=== PATIENT | male | born 1955 | race Caucasian/White ===

== ENCOUNTER → 2019-12-12 | Outpatient (REF) | payer MEDICARE ==
[~2019-12-12] MED LIST: AMLO10TA5 PO; ATOR1TAB21 PO; BACI1CAP PO; CEFD1CAP8; CEFP200T PO; CIPR500T3; LEVA750T7 PO; LOPR1TAB6 PO; METO1TAB87 PO; PANT40TA3 PO; PERCOCET PO; SENN-52 PO
[2019-12-12 17:01] LABS: APPEARANCE, URINE CLOUDY (CLEAR); BACTERIA, URINE AUTO 2+ (NEGATIVE); BILIRUBIN, URINE AUTO NEGATIVE (NEGATIVE); BLOOD, URINE BLOOD 3+ (NEGATIVE); COLOR, URINE YELLOW (YELLOW); GLUCOSE, URINE (UA) AUTO NEGATIVE (NEGATIVE); KETONE, URINE AUTO NEGATIVE (NEGATIVE); LEUKOCYTE ESTERASE, URINE AUTO 3+ (NEGATIVE); NITRITE, URINE AUTO NEGATIVE (NEGATIVE); PROTEIN, URINE AUTO 1+ mg/dL (NEGATIVE); RBC, URINE AUTO 43 /HPF (0-3); RENAL EPITHELIAL CELLS 2 /HPF; SPECIFIC GRAVITY URINE AUTO 1.003 (1.002-1.035); SQUAMOUS EPITHELIAL CELL UR AU 0 /HPF (0-6); UROBILINOGEN, URINE AUTO 0.2 mg/dL (0.0-2.0); WBC, URINE AUTO TNTC /HPF (0-3)
[2019-12-12 17:05] LABS: HEMATOCRIT 41.3 % (42.0-52.0); MEAN CORPUSCULAR HEMOGLOBIN 34.1 pg (27.0-33.0); MEAN CORPUSCULAR HGB CONC 33.9 g/dl (32.0-36.5); MEAN CORPUSCULAR VOLUME 100.5 fl (80.0-96.0); PLATELET COUNT, AUTOMATED 493 10^3/uL (150-450); RED BLOOD COUNT 4.11 10^6/uL (4.30-6.10); WHITE BLOOD COUNT 13.4 10^3/uL (4.0-10.0)
[2019-12-12 17:18] LABS: ALBUMIN 3.7 GM/DL (3.2-5.2); ALT/SGPT 13 U/L (12-78); BILIRUBIN,TOTAL 0.6 MG/DL (0.2-1.0); BLOOD UREA NITROGEN 8 MG/DL (7-18); CALCIUM LEVEL 9.9 MG/DL (8.8-10.2); CARBON DIOXIDE LEVEL 30 MEQ/L (21-32); CHLORIDE LEVEL 100 MEQ/L (98-107); CHOLESTEROL LEVEL 185 MG/DL (<200); CHOLESTEROL RISK RATIO 3.189 (<5); CREATININE FOR GFR 0.81 MG/DL (0.70-1.30); FREE T4 1.08 NG/DL (0.76-1.46); GLOMERULAR FILTRATION RATE > 60.0 (>49); GLUCOSE, FASTING 85 MG/DL (70-100); HDL CHOLESTEROL 58 MG/DL (>40); LDL CHOLESTEROL 109 MG/DL (<100); NON-HDL-C 127 MG/DL; POTASSIUM SERUM 4.3 MEQ/L (3.5-5.1); SODIUM LEVEL 135 MEQ/L (136-145); TOTAL PROTEIN 8.2 GM/DL (6.4-8.2); TRIGLYCERIDES LEVEL 90 MG/DL (<150)
== END ==
LOC: M SFHCADAM 11:51
PROVIDERS: ATTEND Physician Assistant
DX: R35.0 Frequency of micturition (principal); I10 Essential (primary) hypertension; E78.00 Pure hypercholesterolemia, unspecified; F17.210 Nicotine dependence, cigarettes, uncomplicated; R97.20 Elevated prostate specific antigen [PSA]
CPT/HCPCS: 80053; 80061; 81001; 84439; 84443; 85027; 87088; 87186; 90732; 99406; G0009; G0103; G0463

== ENCOUNTER → 2019-12-13 | Outpatient (REF) | payer MEDICARE ==
[2019-12-13 16:38] LABS: FOLATE 6.1 NG/ML
== END ==
LOC: M SFHCADAM 13:42
PROVIDERS: ATTEND Physician Assistant
DX: D75.89 Other specified diseases of blood and blood-forming organs (principal); Z86.19 Personal history of other infectious and parasitic diseases

== ENCOUNTER → 2019-12-22 | Outpatient (CLI) | payer MEDICARE, MEDICAID ==
[~2019-12-22] MED LIST changes: -AMLO10TA5 PO; -ATOR1TAB21 PO; -BACI1CAP PO; -CEFD1CAP8; -CEFP200T PO; -CIPR500T3; +ISOVUE-370 76% 100ML VIAL (Q9967) As Ordered ONE; -LEVA750T7 PO; -LOPR1TAB6 PO; -METO1TAB87 PO; -PANT40TA3 PO; -PERCOCET PO; -SENN-52 PO
--- NOTE | 2019-12-22 11:23 | REP ---
REASON: BPH. PRIORS: None. Contrast 100 mL Isovue 370. The lung bases are clear. There is minimal early cylindrical bronchiectasis. The precontrast enhanced portion of the exam shows hepatic and splenic densities to be within normal limits. There is no nephroureterolithiasis, hydronephrosis or hydroureter. There are no urinary bladder calcifications. There are bilateral pelvic phleboliths. There is mild corpora amylacea. There is bilateral renal stranding. There are no choleliths. Contrast enhanced portion of the examination shows incidental right-sided renal cysts. The kidneys are otherwise within normal limits. The liver is within normal limits. There are two incidental hepatic cysts in the left lobe. The gallbladder, spleen, pancreas, and adrenal glands are within normal limits. Multiple nonenlarged paraaortic lymph nodes are present. There is calcific atherosclerotic change seen in the abdominal aorta. There is no evidence of free fluid or free air. The bowel loops and their mesenteries are within normal limits. CT PELVIS: There is extensive sigmoid colon diverticulosis. There is no free fluid or free air. The urinary bladder wall appears to somewhat thickened posteriorly, however, the urinary bladder is poorly distended. There is no evidence of pelvic sidewall adenopathy. Delayed imaging through the pelvis shows no evidence of intraluminal filling defect within the opacified portion of the urinary bladder. Delayed imaging also shows the ureters to be tortuous and redundant, however, they do completely opacify and show no evidence of an intraluminal filling defect. 3D MIP reformatted imaged obtained as a CT urogram shows no evidence of a renal collecting system abnormality. There is a mild impression on the left urinary bladder wall which is seen to be secondary to sigmoid colon on standard axial imaging. Bone window technique throughout the entire exam shows chronic spinal and hip degenerative changes. IMPRESSION: 1. Incidental hepatic cysts 2. Bosniak class 1 small right renal cysts. 3. No evidence of acute intra-abdominal or intrapelvic disease. 4. No evidence of a collecting system abnormality with findings and limitations as described above. Electronically Signed by Jac Kim DO 12/22/2019 12:11 P
== END ==
LOC: M RAD 08:10
PROVIDERS: ATTEND Urology
DX: N40.1 Benign prostatic hyperplasia with lower urinary tract symptoms (principal)
CPT/HCPCS: 74178; Q9967

== ENCOUNTER 2020-01-06 00:45 | Inpatient (IN) | payer MEDICARE, MEDICAID ==
[~2020-01-06] VITALS: Ht 167.6 cm; Wt 56.3 kg
[2020-01-06] MEDS ORDERED: CEFD1CAP8 (01:05)
[2020-01-06] MEDS ORDERED: CIPR500T3 (01:05)
[2020-01-06] MEDS ORDERED: ATOR1TAB21 PO (01:05)
[2020-01-06] MEDS ORDERED: METO1TAB87 PO (01:05)
[2020-01-06] MEDS ORDERED: PANT40TA3 PO (01:05)
[2020-01-06 01:55] LABS: BASO # 0.1 10^3/uL (0.0-0.2); BASO % 0.4 % (0.0-1.0); EOS # 0.4 10^3/uL (0.0-0.5); HEMOGLOBIN 13.9 g/dl (13.5-17.5); LYMPH # 2.3 10^3/uL (1.5-5.0); LYMPH % 12.1 % (24.0-44.0); MEAN CORPUSCULAR HEMOGLOBIN 32.3 pg (27.0-33.0); MEAN CORPUSCULAR HGB CONC 33.1 g/dl (32.0-36.5); MEAN CORPUSCULAR VOLUME 97.4 fl (80.0-96.0); MONO # 1.5 10^3/uL (0.0-0.8); MONO % 7.6 % (0.0-5.0); NEUTROPHILS # 14.9 10^3/uL (1.5-8.5); NEUTROPHILS % 77.6 % (36.0-66.0); PLATELET COUNT, AUTOMATED 394 10^3/uL (150-450); RED BLOOD COUNT 4.31 10^6/uL (4.30-6.10); WHITE BLOOD COUNT 19.2 10^3/uL (4.0-10.0)
[2020-01-06 02:21] LABS: ALBUMIN 3.8 GM/DL (3.2-5.2); BILIRUBIN,DIRECT 0.2 MG/DL (0.0-0.2); BILIRUBIN,TOTAL 0.5 MG/DL (0.2-1.0); TOTAL PROTEIN 7.9 GM/DL (6.4-8.2)
[2020-01-06] MEDS ORDERED: cefTRIAXone SOD 1 GM in D5W MINI-BAG PLUS 50 ML IV ONE (02:45)
--- NOTE | 2020-01-06 03:05 | IPNPDOC ---
Text Note Date of Service The patient was seen on 01/06/20. NOTE Time of service 305AM Mr Benito is a 64 yr old w a hx of HTN, GERD, dyslipidemia, UTI 3 weeks ago tx w cefdinir and tobacco dependence who presented w c/o of urinary urgency, bib turia, chills and bilateral flank pain. He will be admitted for tx of pyelonephritis w IV abx. 1. Pyelonephritis. He also has leukocytosis. - c/w rocephin / f/u UCx and blood cx / consider Uro consult this admission vs out pt f/u pending clinical course. 2. Uncontrolled HTN - metoprolol 3. Dyslipidemia -resume statin 5. Tobacco Abuse - smoking cessation education Rest per Dr Hall's H&P VS,Zeynep, I+O VS, Zeynep, I+O Laboratory Tests 01/06/20 01:44 Vital Signs Date Time Temp Pulse Resp B/P (MAP) Pulse Ox O2 Delivery O2 Flow Rate FiO2 01/06/20 02:30 85 158/90 (112) 98 Room Air 01/06/20 00:45 97.5 18 GUERITA STOKES MD January 06, 2020 03:05
[2020-01-06] MEDS ORDERED: MOM 30ML SUSPENSION UDC PO PRN ×2 (03:15→10:00)
[2020-01-06] MEDS ORDERED: ACETAMINOPHEN TAB 650MG DOSE (2X325MG) PO PRN (03:15)
[2020-01-06] MEDS: PANTOPRAZOLE 40MG TAB (PROTONIX) PO SCH ×2 (03:30→21:51)
[2020-01-06] MEDS: ATORVASTATIN 20 MG TAB PO SCH ×2 (03:30→21:50)
[2020-01-06] MEDS ORDERED: KETOROLAC 30 MG/ML 1ML VIAL IV PRN (03:45)
[2020-01-06] MEDS: METOPROLOL TART 25 MG TABLET PO SCH ×2 (03:57→09:23)
[2020-01-06] MEDS ORDERED: ONDANSETRON 4MG/2ML VIAL IV PRN (04:00)
[2020-01-06] MEDS ORDERED: NICOTINE 14 MG/24 HR TRANSDERMAL TD PRN (04:15)
--- NOTE | 2020-01-06 04:34 | HPEPDOC ---
[facility] Medical History & Physical Date of Admission January 06, 2020 Date of Service: January 06, 2020 History and Physical CHIEF COMPLAINT: Bilateral flank pain HISTORY OF PRESENT ILLNESS: This is a 64-year-old male with a pertinent past medical history of hypertension, hyperlipidemia, nicotine dependence, history of UTI in 12/2019 and was treated with antibiotics for 10 days, presenting today for bilateral flank pain. He states that the pain started early this afternoon and progressively gotten worse throughout the day. He admits to previously being treated for a UTI with cefdinir for 10 days and notices symptoms resolved after completion of antibiotics. Since then he has been evaluated by a urologist the cystoscope which was negative. He had a CT of the abdomen on 12/21 which showed acute cystitis with no nephrolithiasis. Today he is endorsing nausea, dysuria, chills, increased urinary frequency and incontinence but no change in appetite, vomiting, change in bowel movements, fevers, or night sweats In the ER. Vitals showed hypertension, UA was positive for WBC/RBCs and leukoc yte esterase. Laboratory showed a leukocytosis of 19,000 with normal kidney function. He was started on Rocephin based on previous sensitivities and hospitalist team was called for admission for likelihood of resistance and management for pyelonephritis. PAST MEDICAL HISTORY: 1. Hypertension 2. Hyperlipidemia 3. Nicotine dependence 4. GERD 5. History of UTI in December 2019 6. History of Lyme disease in February 2019 HOME MEDICATIONS: Please see below. ALLERGIES: Please see below PAST SURGICAL HISTORY: 1. Varicose vein stripping 1969 2. Heart catheterization in 10/2018 no stents SOCIAL HISTORY: Lives with: Alone,Tobacco use: Current smoker 40ppd. ETOH: 2-3 beers a week,Illicit drug use: Denies, CODE STATUS: Full code FAMILY HISTORY: Reviewed. Adopted REVIEW OF SYSTEMS: 10 systems reviewed. Constitutional: Denies fever, night sweats, weight loss, admits to generalized malaise and chills HEENT: Denies headache, dysphagia Skin: Denies any rashes or lesions Pulmonary: Denies dyspnea, cough, wheezing Cardiac: Denies chest pain, palpitations, orthopnea, PND, edema, lightheadedness GI: Denies vomiting, abdominal pain, diarrhea, constipation, melena, hematochezia, Admits to nausea and back pain : Admits to dysuria, hematuria, urgency MSK: Denies new pains or weakness Neurologic: Denies new numbness/tingling? PHYSICAL EXAMINATION: VITAL SIGNS: See below GENERAL: Pleasant 64-year-old male sitting up in bed awake alert oriented speaking in complete sentences no acute distress] HEENT: Atraumatic, normocephalic, facemask in place, no JVD CARDIOVASCULAR: S1, S2 present on a regular rate and rhythm no audible murmurs or gallops. RESPIRATORY: Clear to auscultation bilaterally. ABDOMINAL: Bowel sounds present abdomen soft and nontender, no suprapubic tenderness, positive CVA tenderness on the left, EXTREMITIES: No calf tenderness or LE edema NEUROLOGICAL: no gross focal deficits appreciated PSYCHOLOGICAL: Appropriate LABORATORY DATA: See below. MICROBIOLOGY: Please see below. IMAGING: None ASSESSMENT & PLAN: This is a 64-year-old male with a pertinent past medical history of hypertension, hyperlipidemia, UTI in 12/2019 being admitted for pyelonephritis PROBLEMS: 1. Pyelonephritis. c/o of bilateral flank pain -UTI on 12/2019- cefdinir 300 mg twice a day for 10 days, -on my exam CVA tenderness on the left no suprapubic tenderness surprisingly -Urine cultures from 12/12/2019 showed Escherichia coli resistant to Bactrim and levofloxacin. Sensitive to ceftriaxone -In the ER, Leukocytosis 19.2, UA positive for WBC and leukocyte esterase -Rocephin 1 g 1 given in the ER, will continue with IV dosing and de-escalate pending urine culture sensitivities. -Pain control Toradol 10 mg IV q6hp - BUN and creatinine levels within normal limits as well as Tylenol -Nausea Zofran prn on board 2. Hypertension-on metoprolol 25 mg twice a day at home, continue as such. Blood pressure slightly elevated in the ER today, possibly due to pain. Continue with pain control medication and if continue to be antihypertensive can consider ACEi fish or vasodilator prn 3. Hyperlipidemia - continue with atorvastatin 4. Nicotine abuse - educated the patient the risk of smoking and nicotine patch prn ordered. 5. GERD - continue with pantoprazole DVT PROPHYLAXIS: Lovenox DISPOSITION: Admit to [facility] expect at least 2 midnight Vital Signs Vital Signs Date Time Temp Pulse Resp B/P (MAP) Pulse Ox O2 Delivery O2 Flow Rate FiO2 01/06/20 03:41 99.0 82 18 176/97 (123) 98 Room Air Laboratory Data Labs 24H Laboratory Tests 2 01/06/20 01:44: Immature Granulocyte % (Auto) 0.3, Neutrophils (%) (Auto) 77.6H, Lymphocytes (%) (Auto) 12.1L, Monocytes (%) (Auto) 7.6H, Eosinophils (%) (Auto) 2.0, Basophils (%) (Auto) 0.4, Neutrophils # (Auto) 14.9H, Lymphocytes # (Auto) 2.3, Monocytes # (Auto) 1.5H, Eosinophils # (Auto) 0.4, Basophils # (Auto) 0.1, Nucleated Red Blood Cells % (auto) 0.0, Urine Color YELLOW, Urine Appearance CLOUDYH, Urine pH 6.0, Urine Specific [place] 1.008, Urine Protein 2+H, Urine Glucose (UA) NEGATIVE, Urine Ketones NEGATIVE, Urine Blood 3+H, Urine Nitrite NEGATIVE, Urine Bilirubin NEGATIVE, Urine Urobilinogen 0.2, Urine Leukocyte Esterase 3+H, Urine WBC (Auto) TNTCH, Urine RBC (Auto) TNTCH, Urine Hyaline Casts (Auto) 0, Urine Bacteria (Auto) NEGATIVE, Urine Squamous Epithelial Cells 0, Urine Transitional Epithelial Cells 2, Urine Mucus (Auto) SMALL, Urine Yeast-Like Cells (Auto) LARGEH, Urine Sperm (Auto) , POC Glucose (Misc Panel) 88, POC Sodium (Misc Panel) 140, POC Potassium (Misc Panel) 4.0, POC Chloride (Misc Panel) 102, POC Total CO2 (Misc Panel) 29.0H, POC Blood Urea Nitrogen (Misc Panel 13, POC Ionized Calcium (Misc Panel) 5.0, POC Creatinine (Misc Panel) 0.8, POC Hematocrit (Misc Panel) 45.0, Total Bilirubin 0.5, Direct Bilirubin 0.2, Aspartate Amino Transf (AST/SGOT) 16, Alanine Aminotransferase (ALT/SGPT) 16, Alkaline Phosphatase 108, Total Protein 7.9, Albumin 3.8, Albumin/Globulin Ratio 0.93L, Lipase 116 CBC/BMP Laboratory Tests 01/06/20 01:44 Microbiology Microbiology 01/06/20 Blood Culture, Received Pending 01/06/20 Blood Culture, Received Pending 01/06/20 Urine Culture, Received Pending Home Medications Scheduled Atorvastatin Calcium (Atorvastatin Calcium) 20 Mg Tablet, 20 MG PO QHS Metoprolol Tartrate (Metoprolol Tartrate) 25 Mg Tablet, 25 MG PO BID Pantoprazole Sodium (Pantoprazole Sodium) 40 Mg Tablet.dr, 40 MG PO QHS Allergies Coded Allergies: Penicillins (Verified Allergy, Severe, 01/06/20) bee venom protein (honey bee) (Verified Allergy, Severe, 01/06/20) GME ATTESTATION GME ATTESTATION My faculty preceptor for this patient encounter was physically present during the encounter and was fully available. All aspects of the patient interview, examination, medical decision making process, and medical care plan development were reviewed and approved by the faculty preceptor. The faculty preceptor is aware and concurs with the plan as stated in the body of this note and will at test to such by his/her cosignature. ATTENDING NOTE Pls see my progress note for the full addendum. I reviewed the H&P and agree with the findings as documented by . FEDE IBARRA DO January 06, 2020 04:34 GUERITA STOKES MD January 07, 2020 04:30
[2020-01-06 04:35] VITALS: BP 166/90
[2020-01-06 08:00] VITALS: BP 139/68
[2020-01-06] MEDS ORDERED: ENOXAPARIN 40MG/0.4ML SYRINGE (J1650 PER 10MG) SC SCH (09:00)
[2020-01-06] MEDS ORDERED: SENOKOT S TAB PO PRN (10:00)
[2020-01-06] MEDS ORDERED: PERCOCET 5MG/325MG TAB PO PRN (10:00)
[2020-01-06] MEDS ORDERED: METOPROLOL TART 25 MG TABLET PO ONE (10:30)
[2020-01-06 14:00] VITALS: BP 163/93
[2020-01-06 15:00] VITALS: BP 126/64
[2020-01-06] MEDS ORDERED: amLODIPine 10 MG TAB PO ONE (15:30)
[2020-01-06] MEDS: cefTRIAXone SOD 1 GM in D5W MINI-BAG PLUS 50 ML IV SCH (21:50)
[2020-01-06] MEDS: METOPROLOL TART 50 MG TAB PO SCH (21:51)
[2020-01-06 22:00] VITALS: BP 123/76
[2020-01-06 23:30] VITALS: BP 150/75
[2020-01-07 04:19] VITALS: BP 151/75
[2020-01-07 05:33] LABS: HEMATOCRIT 37.1 % (42.0-52.0); HEMOGLOBIN 12.2 g/dl (13.5-17.5); MEAN CORPUSCULAR HEMOGLOBIN 32.3 pg (27.0-33.0); MEAN CORPUSCULAR HGB CONC 32.9 g/dl (32.0-36.5); MEAN CORPUSCULAR VOLUME 98.1 fl (80.0-96.0); PLATELET COUNT, AUTOMATED 333 10^3/uL (150-450); RED BLOOD COUNT 3.78 10^6/uL (4.30-6.10); WHITE BLOOD COUNT 11.7 10^3/uL (4.0-10.0)
[2020-01-07 05:54] LABS: BLOOD UREA NITROGEN 12 MG/DL (7-18); CALCIUM LEVEL 8.6 MG/DL (8.8-10.2); CARBON DIOXIDE LEVEL 33 MEQ/L (21-32); CHLORIDE LEVEL 103 MEQ/L (98-107); CREATININE FOR GFR 0.81 MG/DL (0.70-1.30); GLOMERULAR FILTRATION RATE > 60.0 (>49); GLUCOSE, FASTING 91 MG/DL (70-100); MAGNESIUM LEVEL 2.2 MG/DL (1.8-2.4); POTASSIUM SERUM 3.5 MEQ/L (3.5-5.1); SODIUM LEVEL 142 MEQ/L (136-145)
[2020-01-07 06:00] VITALS: BP 166/93
[2020-01-07] MEDS: amLODIPine 10 MG TAB PO SCH (08:39)
[2020-01-07] MEDS: METOPROLOL TART 50 MG TAB PO SCH ×2 (08:39→22:11)
[2020-01-07 14:00] VITALS: BP 158/94
[2020-01-07] MEDS ORDERED: AMLO10TA5 PO (15:52)
[2020-01-07] MEDS ORDERED: SENN-52 PO (15:52)
[2020-01-07] MEDS ORDERED: LOPR1TAB6 PO (15:52)
[2020-01-07] MEDS ORDERED: LEVA750T7 PO (15:52)
[2020-01-07] MEDS ORDERED: PERCOCET PO (15:52)
[2020-01-07] MEDS ORDERED: BACI1CAP PO (15:52)
[2020-01-07 22:00] VITALS: BP 155/89
[2020-01-07] MEDS: ATORVASTATIN 20 MG TAB PO SCH (22:10)
[2020-01-07] MEDS: PANTOPRAZOLE 40MG TAB (PROTONIX) PO SCH (22:10)
[2020-01-07] MEDS: cefTRIAXone SOD 1 GM in D5W MINI-BAG PLUS 50 ML IV SCH (22:11)
[2020-01-08 06:00] VITALS: BP 152/87
[2020-01-08 06:11] LABS: HEMATOCRIT 34.9 % (42.0-52.0); HEMOGLOBIN 11.9 g/dl (13.5-17.5); MEAN CORPUSCULAR HEMOGLOBIN 32.8 pg (27.0-33.0); MEAN CORPUSCULAR HGB CONC 34.1 g/dl (32.0-36.5); MEAN CORPUSCULAR VOLUME 96.1 fl (80.0-96.0); PLATELET COUNT, AUTOMATED 308 10^3/uL (150-450); RED BLOOD COUNT 3.63 10^6/uL (4.30-6.10); WHITE BLOOD COUNT 7.8 10^3/uL (4.0-10.0)
[2020-01-08 06:45] LABS: BLOOD UREA NITROGEN 15 MG/DL (7-18); CARBON DIOXIDE LEVEL 28 MEQ/L (21-32); CHLORIDE LEVEL 103 MEQ/L (98-107); CREATININE FOR GFR 0.71 MG/DL (0.70-1.30); GLOMERULAR FILTRATION RATE > 60.0 (>49); GLUCOSE, FASTING 91 MG/DL (70-100); POTASSIUM SERUM 3.1 MEQ/L (3.5-5.1); SODIUM LEVEL 136 MEQ/L (136-145)
[2020-01-08] MEDS ORDERED: CEFP200T PO (08:16)
[2020-01-08 09:43] VITALS: BP 152/87
[2020-01-08] MEDS: METOPROLOL TART 50 MG TAB PO SCH (09:43)
[2020-01-08] MEDS: amLODIPine 10 MG TAB PO SCH (09:43)
[2020-01-08] MEDS: cefTRIAXone SOD 1 GM in D5W MINI-BAG PLUS 50 ML IV SCH (10:29)
--- NOTE | 2020-01-08 14:36 | IPN ---
DATE OF SERVICE: 01/07/2020 The patient continues to be hypertensive. Pressure of 160-150 systolic. No chest pain, pressure, or tightness, lightheadedness, shortness of breath, near syncope, or dizziness. No changes in vision. No headaches. The patient still complains of slight discomfort in the back, left and right, but improved from admission. Urine culture is still pending. He had a fever of 101.6 at 2200 but has been afebrile since. Maximum temperature (Tmax) 101.6, current temperature 97.9, pulse 77, respiratory rate 17, blood pressure 165/91, 97% on room air. Generally, awake, alert, oriented times three, answering questions appropriately. Anicteric sclerae. No jaundice. No pallor. No facial asymmetry. Moist mucous membranes. No jugular venous distention (JVD). No thyromegaly. Lungs are clear to auscultation. No wheezing, rales, or rhonchi. Heart: S1, S2, sinus rhythm. Abdomen: Is soft, nontender, nondistended. Positive bowel sounds. Bilateral costovertebral angle (CVA) tenderness positive. Extremities: No cyanosis, clubbing, or pitting edema. White count 11.7, hematocrit 37, hemoglobin 12, platelet count 333. Sodium 142, potassium 3.5, chloride 103, bicarbonate 33, BUN 12, creatinine 0.81, glucose of 91. Urine culture pending. Two sets of blood cultures pending. CT abdomen and pelvis 12/22/2019: Extensive sigmoid diverticulosis, hepatic cyst. No acute intraabdominal or intrapelvic disease. ASSESSMENT AND PLAN: This is a 64-year-old male, history of hypertension, hyperlipidemia, nicotine dependence, urinary tract infection (UTI) in December of 2019, reflux, and Lyme disease in February 2019 presented with bilateral flank pain, nausea, dysuria, chills, increased urinary frequency and incontinence, urinalysis (UA) a urine culture pending. The patient was admitted for pyelonephritis, on intravenous (IV) ceftriaxone. Found to have uncontrolled hypertension with pain being controlled. IMPRESSION: 1. Pyelonephritis. Currently on IV ceftriaxone. Awaiting urine culture results. Still afebrile. 101.6 as of 2200 on 01/06/2020. Await urine culture identification of organism, as well as sensitivity results, and await defervescence for 24 hours. White count is improving. 2. Sepsis secondary to pyelonephritis, improving on IV ceftriaxone, supportive care. 3. Uncontrolled hypertension. Currently, on higher dose of metoprolol 50 twice a day and Norvasc 10 mg daily. The patient says his pain is controlled. Will continue to monitor. May need to uptitrate or add an additional antihypertensive. 4. Dyslipidemia. Resumed on home dose of statin. 5. Tobacco abuse. The patient is on tobacco cessation counseling and nicotine patch. DISPOSITION: If afebrile over the next 24 hours and urine culture is available with sensitivity results, may discharge home in the morning. VINNY
--- NOTE | 2020-01-10 10:31 | DSES ---
DATE OF ADMISSION: 01/06/2020 DATE OF DISCHARGE: 01/08/2020 PRIMARY DISCHARGE DIAGNOSES: 1. Bilateral pyelonephritis with E. Coli. 2. Hypertensive urgency. 3. Nicotine dependence. 4. History of reflux. 5. History of Lyme disease. 6. Hyperlipidemia. DISCHARGE MEDICATIONS: - amlodipine 10 daily - Bacid one tablet twice a day - cefpodoxime 200 mg twice a day for 10 days to complete a total of 14 days - metoprolol 50 mg twice a day - oxycodone/acetaminophen 5/325 mg one tablet every 4 hours as needed for pain, maximum daily dose of 6, three days 18 tablets dispensed - Senokot S one tablet twice a day as needed - atorvastatin 20 mg at bedtime - Protonix 40 mg at bedtime HOSPITAL COURSE: This is a 64-year-old male who presented to the emergency room after being treated for a urinary tract infection (UTI) in December with ten days of antibiotics with bilateral flank pain which started on the day of admission. It progressively worsened. CT of abdomen and pelvis on 12/22/2019 showed acute cystitis with no nephrolithiasis. The patient had a white count of 19,000 with normal kidney function. He was started on IV Rocephin. The patient remained in the hospital and had a T-max of 101.6 on 01/06/2020 at 2200. Urine culture grew out E. Coli, resistant to ampicillin, Levaquin and Bactrim, sensitive to cefazolin, Cefepime, Ceftazidime, ceftriaxone, nitrofurantoin, tigecycline, Zosyn and Tobramycin. Two sets of blood cultures were negative. The patient had uncontrolled blood pressure despite not having much pain. His metoprolol was discontinued and increased to metoprolol 50 mg twice a day with addition of Norvasc of 10 mg daily with subsequent improvement from 217/122 to 152/87 at hospital discharge. PHYSICAL EXAMINATION ON DISCHARGE: Temperature 98.6, pulse 71, respiratory rate 18, blood pressure 152/87, 96% on room air. Generally, patient is awake, alert, oriented times three, answering questions appropriately. No facial asymmetry. Tongue is midline. No jugular venous distention (JVD) or thyromegaly. Lungs are clear to auscultation. No wheezing, rales or rhonchi. Heart: S1, S2. Abdomen: Soft. Nontender. Nondistended. Positive bowel sounds times four quadrants. No hepatosplenomegaly. No abdominal bruits. Patient continues to have slight costovertebral angle (CVA) tenderness bilaterally. Extremities: No cyanosis, clubbing or any pitting edema. LABORATORY DATA: White count 7.8, hemoglobin 11, hematocrit 34, platelet count 308. Sodium 136, potassium 3.1, chloride 103, bicarbonate 28, BUN 15, creatinine 0.71, glucose 91. Urine culture with E. Coli resistant to Levaquin, ampicillin and Bactrim, sensitive to cefazolin, Cefepime, Ceftazidime, ceftriaxone, irtapenem, gentamicin, meropenem, nitrofurantoin, Zosyn, tigecycline and Tobramycin. Two sets of blood cultures negative. IMAGING: CT of abdomen and pelvis 12/22/2019 with extensive sigmoid colon diverticulosis without inflammation. No evidence of acute intra-abdominal or intrapelvic disease. No evidence of collecting system abnormality with findings and limitations as above. Bosniak class 1 small right renal cysts. TIME SPENT ON DISCHARGE: 30 minutes.
== END 2020-01-08 12:09 | disposition home or self-care (01) | DRG 690 ==
LOC: M ED 00:45 → M ED INP 02:57 → ENRESERV 03:17 → M MSPAV 04:32
PROVIDERS: ADMIT Internal Medicine; ATTEND General Practice
DX: N10 Acute pyelonephritis (principal); I10 Essential (primary) hypertension; B96.29 Other Escherichia coli [E. coli] as the cause of diseases classified elsewhere; F17.200 Nicotine dependence, unspecified, uncomplicated; E78.5 Hyperlipidemia, unspecified; I16.0 Hypertensive urgency; Z79.899 Other long term (current) drug therapy; K21.9 Gastro-esophageal reflux disease without esophagitis

== ENCOUNTER → 2020-02-29 | Outpatient (REF) | payer MEDICARE, MEDICAID ==
[~2020-02-29] MED LIST changes: +AMLO1TAB25 PO; +ATOR1TAB21 PO; +BACI1CAP PO; +CEFD1CAP8; +CEFP200T PO; +CIPR500T3; -ISOVUE-370 76% 100ML VIAL (Q9967) As Ordered ONE; +LEVA750T7 PO; +LOPR1TAB6 PO; +METO1TAB87 PO; +PANT40TA29 PO; +PERCOCET PO; +SENN-52 PO
[2020-03-01 14:49] LABS: APPEARANCE, URINE CLOUDY (CLEAR); BACTERIA, URINE AUTO 2+ (NEGATIVE); BILIRUBIN, URINE AUTO NEGATIVE (NEGATIVE); BLOOD, URINE BLOOD 2+ (NEGATIVE); COLOR, URINE YELLOW (YELLOW); GLUCOSE, URINE (UA) AUTO NEGATIVE (NEGATIVE); KETONE, URINE AUTO TRACE mg/dL (NEGATIVE); LEUKOCYTE ESTERASE, URINE AUTO 3+ (NEGATIVE); MUCUS, URINE SMALL (NEGATIVE); NITRITE, URINE AUTO NEGATIVE (NEGATIVE); PROTEIN, URINE AUTO NEGATIVE (NEGATIVE); RBC, URINE AUTO 7 /HPF (0-3); SPECIFIC GRAVITY URINE AUTO 1.003 (1.002-1.035); SQUAMOUS EPITHELIAL CELL UR AU 0 /HPF (0-6); UROBILINOGEN, URINE AUTO 0.2 mg/dL (0.0-2.0); WBC, URINE AUTO TNTC /HPF (0-3)
== END ==
LOC: M SFHCPLAZ 13:45
PROVIDERS: ATTEND Physician Assistant
DX: N39.0 Urinary tract infection, site not specified (principal)

== ENCOUNTER → 2020-10-30 | Outpatient (REF) | payer MEDICARE, MEDICAID ==
[2020-10-30 17:25] LABS: HEMATOCRIT 40.2 % (42.0-52.0); HEMOGLOBIN 13.3 g/dl (13.5-17.5); MEAN CORPUSCULAR HEMOGLOBIN 33.3 pg (27.0-33.0); MEAN CORPUSCULAR HGB CONC 33.1 g/dl (32.0-36.5); MEAN CORPUSCULAR VOLUME 100.8 fl (80.0-96.0); PLATELET COUNT, AUTOMATED 319 10^3/uL (150-450); RED BLOOD COUNT 3.99 10^6/uL (4.30-6.10); WHITE BLOOD COUNT 9.8 10^3/uL (4.0-10.0)
[2020-10-30 17:26] LABS: ALT/SGPT 28 U/L (12-78); BILIRUBIN,TOTAL 0.6 MG/DL (0.2-1.0); BLOOD UREA NITROGEN 12 MG/DL (7-18); CALCIUM LEVEL 9.2 MG/DL (8.8-10.2); CARBON DIOXIDE LEVEL 29 MEQ/L (21-32); CHLORIDE LEVEL 103 MEQ/L (98-107); CHOLESTEROL LEVEL 175 MG/DL (<200); CREATININE FOR GFR 1.01 MG/DL (0.70-1.30); GLOMERULAR FILTRATION RATE > 60.0 (>49); GLUCOSE, FASTING 117 MG/DL (70-100); HDL CHOLESTEROL 72 MG/DL (>40); LDL CHOLESTEROL 77 MG/DL (<100); NON-HDL-C 103 MG/DL; POTASSIUM SERUM 4.1 MEQ/L (3.5-5.1); SODIUM LEVEL 138 MEQ/L (136-145); TOTAL PROTEIN 7.2 GM/DL (6.4-8.2); TRIGLYCERIDES LEVEL 129 MG/DL (<150)
[2020-10-30 17:37] LABS: VITAMIN B12 LEVEL 896 PG/ML
[2020-10-30 17:38] LABS: FOLATE 9.7 NG/ML
== END ==
LOC: M SFHCADAM 13:38
PROVIDERS: ATTEND Physician Assistant
DX: K21.9 Gastro-esophageal reflux disease without esophagitis (principal); I10 Essential (primary) hypertension; F17.210 Nicotine dependence, cigarettes, uncomplicated; E78.00 Pure hypercholesterolemia, unspecified

== ENCOUNTER → 2021-06-12 | Outpatient (REF) | payer MEDICARE, MEDICAID ==
[2021-06-12 13:04] LABS: HEMATOCRIT 39.9 % (42.0-52.0); HEMOGLOBIN 13.9 g/dl (13.5-17.5); MEAN CORPUSCULAR HGB CONC 34.8 g/dl (32.0-36.5); MEAN CORPUSCULAR VOLUME 97.6 fl (80.0-96.0); PLATELET COUNT, AUTOMATED 357 10^3/uL (150-450); RED BLOOD COUNT 4.09 10^6/uL (4.30-6.10)
[2021-06-12 16:49] LABS: ALBUMIN 3.4 GM/DL (3.2-5.2); ALT/SGPT 28 U/L (12-78); BILIRUBIN,TOTAL 0.3 MG/DL (0.2-1.0); BLOOD UREA NITROGEN 10 MG/DL (7-18); CALCIUM LEVEL 9.5 MG/DL (8.8-10.2); CARBON DIOXIDE LEVEL 30 MEQ/L (21-32); CHLORIDE LEVEL 100 MEQ/L (98-107); CREATININE FOR GFR 0.96 MG/DL (0.70-1.30); GLOMERULAR FILTRATION RATE > 60.0 (>49); GLUCOSE, FASTING 73 MG/DL (70-100); POTASSIUM SERUM 4.6 MEQ/L (3.5-5.1); SODIUM LEVEL 136 MEQ/L (136-145); TOTAL PROTEIN 6.9 GM/DL (6.4-8.2)
== END ==
LOC: M SFHCADAM 07:36
PROVIDERS: ATTEND Physician Assistant
DX: E78.00 Pure hypercholesterolemia, unspecified (principal); I10 Essential (primary) hypertension; F17.210 Nicotine dependence, cigarettes, uncomplicated; R97.20 Elevated prostate specific antigen [PSA]; K21.9 Gastro-esophageal reflux disease without esophagitis; Z23 Encounter for immunization
CPT/HCPCS: 80053; 85027; 90670; 90682; G0008; G0009; G0103; G0463

== ENCOUNTER → 2023-04-26 | Outpatient (REF) | payer MEDICARE, MEDICAID ==
[~2023-04-26] MED LIST changes: -CEFD1CAP8; +CEFD300C41
[2023-04-26 15:22] LABS: HEMATOCRIT 41.3 % (42.0-52.0); HEMOGLOBIN 14.1 g/dl (13.5-17.5); MEAN CORPUSCULAR HEMOGLOBIN 34.1 pg (27.0-33.0); MEAN CORPUSCULAR HGB CONC 34.1 g/dl (32.0-36.5); PLATELET COUNT, AUTOMATED 336 10^3/uL (150-450); RED BLOOD COUNT 4.13 10^6/uL (4.30-6.10); WHITE BLOOD COUNT 7.5 10^3/uL (4.0-10.0)
[2023-04-26 15:48] LABS: CREATININE, URINE 227.4 MG/DL; MAU/CREAT RATIO 31.2 MCG/MG (0.0-30.0)
[2023-04-26 15:52] LABS: ALBUMIN 3.5 G/DL (3.2-5.2); ALKALINE PHOSPHATASE 87 U/L (46-116); ALT/SGPT 19 U/L (7.0-40); AST/SGOT 28 U/L (<34); BILIRUBIN,TOTAL 0.8 MG/DL (0.3-1.2); BLOOD UREA NITROGEN 13 MG/DL (9-23); CALCIUM LEVEL 9.4 MG/DL (8.3-10.6); CARBON DIOXIDE LEVEL 30 MMOL/L (20-31); CHLORIDE LEVEL 101 MMOL/L (98-107); CHOLESTEROL LEVEL 141 MG/DL (<200); CHOLESTEROL RISK RATIO 2.05 (<5); CREATININE FOR GFR 0.84 MG/DL (0.70-1.30); FREE T4 1.32 NG/DL (0.89-1.76); GLOMERULAR FILTRATION RATE > 60.0 (>49); GLUCOSE, FASTING 161 MG/DL (74-106); HDL CHOLESTEROL 68.7 MG/DL (>40); LDL CHOLESTEROL 59.9 MG/DL (<100); NON-HDL-C 72.3 MG/DL; POTASSIUM SERUM 4.2 MMOL/L (3.5-5.1); SODIUM LEVEL 136 MMOL/L (136-145); THYROID STIMULATING HORMONE 1.404 uIU/ML (0.55-4.78); TOTAL PROTEIN 6.6 G/DL (5.7-8.2); TRIGLYCERIDES LEVEL 62 MG/DL (<150)
[2023-04-28 10:45] LABS: HEMOGLOBIN A1c 5.2 % (4.0-6.0)
== END ==
LOC: M SFHCADAM 13:00
PROVIDERS: ATTEND Physician Assistant
DX: I10 Essential (primary) hypertension (principal); Z12.5 Encounter for screening for malignant neoplasm of prostate; F17.210 Nicotine dependence, cigarettes, uncomplicated; K21.9 Gastro-esophageal reflux disease without esophagitis; Z13.220 Encounter for screening for lipoid disorders; Z79.899 Other long term (current) drug therapy
CPT/HCPCS: 80053; 80061; 82043; 83036; 84439; 84443; 85027; G0103

== ENCOUNTER → 2023-04-28 | Outpatient (REF) | payer MEDICARE, MEDICAID | LOC: M SFHCADAM 15:52 | PROVIDERS: ATTEND Physician Assistant | DX: Z12.11 Encounter for screening for malignant neoplasm of colon (principal) ==

== ENCOUNTER → 2023-05-14 | Outpatient (CLI) | payer MEDICARE, MEDICAID | LOC: M RAD 07:07 | PROVIDERS: ATTEND Family Medicine | DX: I10 Essential (primary) hypertension (principal) ==

== ENCOUNTER → 2023-06-29 | Outpatient (REF) | payer MEDICARE, MEDICAID ==
[~2023-06-29] MED LIST changes: -CEFD300C41; +CEFD300C42
[2023-06-29 16:22] LABS: BLOOD UREA NITROGEN 13 MG/DL (9-23); CALCIUM LEVEL 9.3 MG/DL (8.3-10.6); CARBON DIOXIDE LEVEL 30 MMOL/L (20-31); CHLORIDE LEVEL 92 MMOL/L (98-107); CREATININE FOR GFR 1.17 MG/DL (0.70-1.30); GLOMERULAR FILTRATION RATE > 60.0 (>42); GLUCOSE, FASTING 111 MG/DL (74-106); POTASSIUM SERUM 5.3 MMOL/L (3.5-5.1); SODIUM LEVEL 127 MMOL/L (136-145)
== END ==
LOC: M SFHCADAM 13:21
PROVIDERS: ATTEND Physician Assistant
DX: I10 Essential (primary) hypertension (principal)

== ENCOUNTER → 2023-07-09 | Outpatient (REF) | payer MEDICARE, MEDICAID ==
[2023-07-09 18:50] LABS: BLOOD UREA NITROGEN 17 MG/DL (9-23); CALCIUM LEVEL 9.2 MG/DL (8.3-10.6); CARBON DIOXIDE LEVEL 30 MMOL/L (20-31); CHLORIDE LEVEL 85 MMOL/L (98-107); CREATININE FOR GFR 1.17 MG/DL (0.70-1.30); GLOMERULAR FILTRATION RATE > 60.0 (>42); GLUCOSE, FASTING 83 MG/DL (74-106); POTASSIUM SERUM 4.4 MMOL/L (3.5-5.1); SODIUM LEVEL 122 MMOL/L (136-145)
== END ==
LOC: M SFHCADAM 14:46
PROVIDERS: ATTEND Physician Assistant
DX: E87.1 Hypo-osmolality and hyponatremia (principal)

== ENCOUNTER → 2023-07-19 | Outpatient (REF) | payer MEDICARE, MEDICAID ==
[2023-07-19 17:04] LABS: BLOOD UREA NITROGEN 9 MG/DL (9-23); CARBON DIOXIDE LEVEL 29 MMOL/L (20-31); CHLORIDE LEVEL 101 MMOL/L (98-107); CREATININE FOR GFR 0.89 MG/DL (0.70-1.30); GLOMERULAR FILTRATION RATE > 60.0 (>42); GLUCOSE, FASTING 94 MG/DL (74-106); POTASSIUM SERUM 4.4 MMOL/L (3.5-5.1); SODIUM LEVEL 137 MMOL/L (136-145)
== END ==
LOC: M SFHCADAM 13:20
PROVIDERS: ATTEND Physician Assistant
DX: E87.1 Hypo-osmolality and hyponatremia (principal)

== ENCOUNTER → 2024-01-27 | Outpatient (CLI) | payer MEDICARE, MEDICAID ==
[~2024-01-27] MED LIST changes: +CEFD1CAP9; -CEFD300C42
[2024-01-27 11:18] LABS: HEMATOCRIT 41.8 % (42.0-52.0); HEMOGLOBIN 14.1 g/dl (13.5-17.5); MEAN CORPUSCULAR HGB CONC 33.7 g/dl (32.0-36.5); MEAN CORPUSCULAR VOLUME 97.9 fl (80.0-96.0); PLATELET COUNT, AUTOMATED 346 10^3/uL (150-450); RED BLOOD COUNT 4.27 10^6/uL (4.30-6.10); WHITE BLOOD COUNT 7.5 10^3/uL (4.0-10.0)
[2024-01-27 11:37] LABS: CREATININE, URINE 132.8 MG/DL; MAU/CREAT RATIO 14.3 MCG/MG (0.0-30.0)
[2024-01-27 11:38] LABS: BILIRUBIN,TOTAL 0.6 MG/DL (0.3-1.2); CALCIUM LEVEL 9.9 MG/DL (8.3-10.6); CREATININE FOR GFR 1.35 MG/DL (0.70-1.30); GLOMERULAR FILTRATION RATE 55.6 (>42); POTASSIUM SERUM 4.8 MMOL/L (3.5-5.1); TOTAL PROTEIN 6.9 G/DL (5.7-8.2)
== END ==
LOC: M LAB 10:36
PROVIDERS: ATTEND Physician Assistant
DX: I16.0 Hypertensive urgency (principal)

== ENCOUNTER → 2024-01-27 | Outpatient (REF) | payer MEDICARE, MEDICAID | LOC: M SFHCADAM 09:55 | PROVIDERS: ATTEND Physician Assistant | DX: I16.0 Hypertensive urgency (principal) ==

== ENCOUNTER → 2024-02-29 | Outpatient (REF) | payer MEDICARE, MEDICAID ==
[2024-02-29 18:50] LABS: BLOOD UREA NITROGEN 14 MG/DL (9-23); CALCIUM LEVEL 9.8 MG/DL (8.3-10.6); CARBON DIOXIDE LEVEL 30 MMOL/L (20-31); CHLORIDE LEVEL 103 MMOL/L (98-107); CREATININE FOR GFR 0.85 MG/DL (0.70-1.30); GLOMERULAR FILTRATION RATE > 60.0 (>42); GLUCOSE, FASTING 117 MG/DL (74-106); POTASSIUM SERUM 4.5 MMOL/L (3.5-5.1); SODIUM LEVEL 136 MMOL/L (136-145)
== END ==
LOC: M SFHCADAM 11:44
PROVIDERS: ATTEND Physician Assistant
DX: I10 Essential (primary) hypertension (principal)

== ENCOUNTER → 2024-03-21 | Outpatient (REF) | payer MEDICARE, MEDICAID ==
[2024-03-21 17:57] LABS: BLOOD UREA NITROGEN 23 MG/DL (9-23); CALCIUM LEVEL 9.8 MG/DL (8.3-10.6); CARBON DIOXIDE LEVEL 28 MMOL/L (20-31); CHLORIDE LEVEL 95 MMOL/L (98-107); CREATININE FOR GFR 1.21 MG/DL (0.70-1.30); GLOMERULAR FILTRATION RATE > 60.0 (>42); GLUCOSE, FASTING 111 MG/DL (74-106); SODIUM LEVEL 131 MMOL/L (136-145)
== END ==
LOC: M SFHCADAM 13:40
PROVIDERS: ATTEND Physician Assistant
DX: I10 Essential (primary) hypertension (principal)

== ENCOUNTER → 2024-08-15 | Outpatient (REF) | payer MEDICARE, MEDICAID ==
[2024-08-15 13:12] LABS: HEMATOCRIT 36.3 % (42.0-52.0); HEMOGLOBIN 12.3 g/dl (13.5-17.5); MEAN CORPUSCULAR HEMOGLOBIN 32.7 pg (27.0-33.0); MEAN CORPUSCULAR HGB CONC 33.9 g/dl (32.0-36.5); MEAN CORPUSCULAR VOLUME 96.5 fl (80.0-96.0); PLATELET COUNT, AUTOMATED 442 10^3/uL (150-450); RED BLOOD COUNT 3.76 10^6/uL (4.30-6.10); WHITE BLOOD COUNT 5.9 10^3/uL (4.0-10.0)
[2024-08-15 13:16] LABS: ALBUMIN 3.6 G/DL (3.2-5.2); BILIRUBIN,TOTAL 0.4 MG/DL (0.3-1.2); CALCIUM LEVEL 9.9 MG/DL (8.3-10.6); CHOLESTEROL RISK RATIO 3.21 (<5); CREATININE FOR GFR 1.52 MG/DL (0.70-1.30); GLOMERULAR FILTRATION RATE 48.4 (>42); HDL CHOLESTEROL 49.4 MG/DL (>40); LDL CHOLESTEROL 90.6 MG/DL (<100); NON-HDL-C 109.6 MG/DL; POTASSIUM SERUM 4.8 MMOL/L (3.5-5.1); PSA SCREENING 0.79 NG/ML (< 4.00); TOTAL PROTEIN 7.3 G/DL (5.7-8.2)
[2024-08-15 13:38] LABS: CREATININE, URINE 163.4 MG/DL
== END ==
LOC: M SFHCADAM 12:35
PROVIDERS: ATTEND Physician Assistant
DX: F10.10 Alcohol abuse, uncomplicated (principal); Z12.5 Encounter for screening for malignant neoplasm of prostate; E87.1 Hypo-osmolality and hyponatremia; I10 Essential (primary) hypertension; E78.00 Pure hypercholesterolemia, unspecified
CPT/HCPCS: 36415; 80053; 80061; 82043; 85027; G0103

== ENCOUNTER → 2025-01-11 | Outpatient (REF) | payer MEDICARE, MEDICAID ==
[2025-01-11 17:15] LABS: BASO # 0.1 10^3/uL (0.0-0.2); BASO % 0.7 % (0.0-1.0); EOS # 0.3 10^3/uL (0.0-0.5); EOS % 3.9 % (0.0-3.0); HEMATOCRIT 36.2 % (42.0-52.0); HEMOGLOBIN 12.3 g/dl (13.5-17.5); LYMPH # 2.4 10^3/uL (1.5-5.0); LYMPH % 27.6 % (24.0-44.0); MEAN CORPUSCULAR HEMOGLOBIN 32.7 pg (27.0-33.0); MEAN CORPUSCULAR VOLUME 96.3 fl (80.0-96.0); MONO # 0.9 10^3/uL (0.0-0.8); MONO % 10.7 % (2.0-8.0); NEUTROPHILS % 56.8 % (36.0-66.0); PLATELET COUNT, AUTOMATED 408 10^3/uL (150-450); RED BLOOD COUNT 3.76 10^6/uL (4.30-6.10); WHITE BLOOD COUNT 8.8 10^3/uL (4.0-10.0)
[2025-01-11 17:33] LABS: BILIRUBIN,TOTAL 0.5 MG/DL (0.3-1.2); CALCIUM LEVEL 9.7 MG/DL (8.3-10.6); CREATININE FOR GFR 1.32 MG/DL (0.70-1.30); GLOMERULAR FILTRATION RATE 57.7 (>42); POTASSIUM SERUM 4.9 MMOL/L (3.5-5.1); TOTAL PROTEIN 7.4 G/DL (5.7-8.2)
[2025-01-12 15:03] LABS: PERCENT SATURATION 22.2 % (19.7-50.0)
[2025-01-12 15:05] LABS: FERRITIN 184.8 NG/ML (10.5-307.3); FOLATE 13.9 NG/ML (>5.4)
== END ==
LOC: M SFHCADAM 12:25
PROVIDERS: ATTEND Physician Assistant
DX: I10 Essential (primary) hypertension (principal); E78.00 Pure hypercholesterolemia, unspecified; N18.32 Chronic kidney disease, stage 3b; F17.210 Nicotine dependence, cigarettes, uncomplicated; F10.10 Alcohol abuse, uncomplicated; Z12.11 Encounter for screening for malignant neoplasm of colon; D64.9 Anemia, unspecified

== ENCOUNTER → 2025-07-19 | Outpatient (REF) | payer MEDICARE, MEDICAID ==
[2025-07-19 14:29] LABS: BASO # 0.1 10^3/uL (0.0-0.2); BASO % 1.0 % (0.0-1.0); EOS # 0.3 10^3/uL (0.0-0.5); EOS % 3.4 % (0.0-3.0); LYMPH # 2.0 10^3/uL (1.5-5.0); LYMPH % 27.5 % (24.0-44.0); MONO # 0.9 10^3/uL (0.0-0.8); MONO % 12.7 % (2.0-8.0); NEUTROPHILS # 4.0 10^3/uL (1.5-8.5); NEUTROPHILS % 55.0 % (36.0-66.0); PLATELET COUNT, AUTOMATED 449 10^3/uL (150-450)
[2025-07-19 14:58] LABS: ALT/SGPT 15.0 U/L (7.0-40); AST/SGOT 21.0 U/L (<34); CALCIUM LEVEL 9.2 MG/DL (8.3-10.6); CARBON DIOXIDE LEVEL 28.0 MMOL/L (20-31); CHLORIDE LEVEL 103.0 MMOL/L (98-107); CHOLESTEROL LEVEL 158.0 MG/DL (<200); CHOLESTEROL RISK RATIO 2.99 (<5); CREATININE FOR GFR 1.45 MG/DL (0.70-1.30); GLOMERULAR FILTRATION RATE 51.2 (>42); LDL CHOLESTEROL 87.0 MG/DL (<100); NON-HDL-C 105.2 MG/DL; POTASSIUM SERUM 4.6 MMOL/L (3.5-5.1); PSA SCREENING 1.01 NG/ML (< 4.00); SODIUM LEVEL 138.0 MMOL/L (136-145); TRIGLYCERIDES LEVEL 91.0 MG/DL (<150)
== END ==
LOC: M SFHCADAM 10:35
PROVIDERS: ATTEND Physician Assistant
DX: I10 Essential (primary) hypertension (principal); E78.00 Pure hypercholesterolemia, unspecified; F17.210 Nicotine dependence, cigarettes, uncomplicated; K21.9 Gastro-esophageal reflux disease without esophagitis; N18.32 Chronic kidney disease, stage 3b; F10.10 Alcohol abuse, uncomplicated; Z12.5 Encounter for screening for malignant neoplasm of prostate
CPT/HCPCS: 80053; 80061; 85025; G0103